=== PATIENT | male | born 1955 ===

== ENCOUNTER → 2020-06-13 09:00 | Outpatient (CLI) | payer OTHER, SELFPAY ==
[2020-06-13 10:53] LABS: COVID19 -Nasal RAPID Negative (Negative)
== END ==
PROVIDERS: Visit Provider Nurse Practitioner
DX: Z20.822 Contact with and (suspected) exposure to COVID-19 (principal)
CPT/HCPCS: 87635

== ENCOUNTER 2020-06-15 12:37 | Day surgery (SDC) | payer OTHER, SELFPAY ==
[2020-06-15] VITALS (10 sets, daily range): BP systolic 99–133; BP diastolic 49–74; PULSE 50–64; RESP 10–18; TEMP 36.3–36.8; O2SAT 94–100; BMI 21.2
--- NOTE | 2020-06-15 12:03 | P.HP_ITS ---
History of Present Illness History of Present Illness Date Patient Seen: 06/15/20 Chief complaint: SCREENING COLONOSCOPY Narrative: 64 Years Old Male seen today for consideration of a screening colonoscopy. Last colonoscopy 2009, normal, here for 10-year recall. There have been no lower GI symptoms suggesting disease such as change in bowel habits, bleeding, abdominal pain or anemia. There's been no family history of colon cancer or colon polyps. Overall health issues have been stable, including no major cardiac events for at least 6 weeks. 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 Lives at home with and adult son. <1 alcoholic drink per day. Meds Home Medications and Allergies Home Medications Medication Instructions Recorded Confirmed Type insulin lispro [Humalog Pen] 18 unit SUBCUT TID #0 10/15/10 06/15/20 History insulin detemir U-100 [Levemir 8 unit SUBCUT BID 06/15/20 06/15/20 History Flexpen] Allergies Allergy/AdvReac Type Severity Reaction Status Date / Time No Known Drug Allergies Allergy Verified 06/15/20 12:57 Review of Systems Review of Systems ROS: Yes All systems reviewed with the patient and are negative except as otherwise documented Exam Narrative Exam Narrative: General: well developed, well nourished, in no acute distress, Head: normocephalic and atraumatic, Lungs: normal respiratory effort, clear bilaterally to auscultation, no wheezes rales or rhonchi. (unchanged from 12/15/2019) Heart: normal rate and regular rhythm, no murmurs, rubs, gallops, or clicks, Abdomen: abdomen soft and non-tender without masses, organomegaly, or abdominal wall hernias, bowel sounds positive. (unchanged from 12/15/2019) Skin: intact without suspicious lesions or rashes, Psych: alert and cooperative; normal mood and affect; normal attention span and concentration; cognition, remote and recent memory appear to be intact, Assessment & Plan Assessment & Plan narrative: 1. Screening for colon cancer Plan for colonoscopy. The nature and character of the procedure as well as anticipated results were discussed. The possibility of not completing the procedure was also discussed. Possible complications including aspiration pneumonia, bleeding, perforation and reaction to medications either for sedation or preparation and missed lesions were discussed. Questions were answered and proceeding to the colonoscopy was elected. Informed consent signed. I sincerely appreciate the referral allowing me to participate in this patient's care. Please contact me with any questions or concerns.
--- NOTE | 2020-06-15 12:04 | PM.OP.ENDO ---
Operative Date/Time/Diagnoses Date of procedure: 06/15/20 Procedure & Clinicians Surgeon: Annabelle Rehman Procedure Notes Procedure in detail: ENDOSCOPIST: Annabelle Rehman MD Sedation RN: Elvia Thomas RN Sedation start time: 1:54 p.m. Sedation end time: 2:12 p.m. PROCEDURE: Colonoscopy INDICATIONS: 1. Screening for colon cancer MEDICATION: Levsin 0.125 mg sublingual, incremental doses of Versed and fentanyl until appropriate level sedation achieved. ASA CLASS: 2 CECAL WITHDRAWAL TIME: 6 minutes COMPLICATIONS: None. EXTENT OF PROCEDURE: Cecum. QUALITY OF PREP: Good with portions of liquid stool. PROCEDURE: Prior to insertion of the colonoscope, a digital rectal examination was accomplished with circumferential palpation of the distal rectal mucosa without significant findings being noted. The high-definition colonoscope was passed into the rectum in the usual fashion and advanced over to the cecum without difficulty. The ileocecal valve, appendiceal stoma, and medial wall all could be inspected and no abnormalities were seen. ASCENDING COLON: As the colonoscope was withdrawn, care was taken to expose and inspect the haustral folds and no abnormalities were seen. HEPATIC FLEXURE: Normal, no polyps, diverticula or other abnormalities. TRANSVERSE COLON: Normal, no polyps, diverticula or other abnormalities. DESCENDING COLON: Normal, no polyps, diverticula or other abnormalities. SIGMOID COLON: Normal, no polyps, diverticula or other abnormalities. RECTUM: Normal. J maneuver was produced. There was no significant perianal disease. The J maneuver was broken. The remainder of the rectum was inspected and there was [] no external hemorrhoid disease. The scope was withdrawn. IMPRESSION: 1. Normal colonoscopy PLAN: 1. Repeat colonoscopy in 10 years. The possibility of a missed lesion including a malignancy has been discussed with the patient previously. Potential alarm symptoms have been discussed and should be reported immediately.
[2020-06-15] MEDS: HYOSCYAMINE 0.125 MG TABLET PO (13:10)
[2020-06-15] MEDS: LACTATED RINGERS 1,000 ML 200 ML IV (13:31)
[2020-06-15] MEDS: MIDAZOLAM 5 MG/5 ML VIAL IV (13:51)
[2020-06-15] MEDS: fentaNYL 250 MCG/5 ML INJ IV (13:52)
== END 2020-06-15 15:38 | disposition home or self-care (01) ==
PROVIDERS: PCP Student in an Organized Health Care Education/Training Program; Referring Provider Student in an Organized Health Care Education/Training Program; Visit Provider Student in an Organized Health Care Education/Training Program
PROC: 0DJD8ZZ Inspection of Lower Intestinal Tract, Via Natural or Artificial Opening Endoscopic (ICD-10-PCS; CPT 45378; principal; 2020-06-15 13:45)
DX: Z12.11 Encounter for screening for malignant neoplasm of colon (principal); E10.319 Type 1 diabetes mellitus with unspecified diabetic retinopathy without macular edema; F41.9 Anxiety disorder, unspecified; E78.5 Hyperlipidemia, unspecified; N40.1 Benign prostatic hyperplasia with lower urinary tract symptoms; N13.8 Other obstructive and reflux uropathy; Z79.4 Long term (current) use of insulin
CPT/HCPCS: 45378; 82962; J2250; J3010

== ENCOUNTER → 2021-10-07 13:47 | Outpatient (CLI) | payer MEDICARE, OTHER, SELFPAY ==
[2021-10-07 15:15] LABS: Hemoglobin A1C% w Est Avg Glu 6.7 % (4.0-6.0)
[2021-10-07 21:59] LABS: Microalbumin Urine Random 1.7 mg/dL (0-1.6)
== END ==
PROVIDERS: PCP Student in an Organized Health Care Education/Training Program; Referring Provider Internal Medicine; Visit Provider Internal Medicine
DX: E10.9 Type 1 diabetes mellitus without complications (principal)
CPT/HCPCS: 36415; 82043; 82570; 83036

== ENCOUNTER → 2023-09-04 08:46 | Outpatient (CLI) | payer MEDICARE, OTHER, SELFPAY ==
[2023-09-04 11:32] LABS: Creatinine Urine Random 32.4 mg/dL
[2023-09-04 11:41] LABS: Microalbumin Urine Random < 0.6 mg/dL (0-1.6)
== END ==
PROVIDERS: PCP Family Medicine; Referring Provider Family Medicine; Visit Provider Family Medicine
DX: E10.9 Type 1 diabetes mellitus without complications (principal)
CPT/HCPCS: 82043; 82570